=== PATIENT | female | born 1990 | race Caucasian/White ===

== ENCOUNTER → 2016-10-19 | Outpatient (CLI) | payer OTHER ==
[2016-10-19 14:13] LABS: CHLORIDE,CL 105 mmol/L (98-110); SODIUM,NA 138 mmol/L (136-146)
== END ==
LOC: MW.CHOBGYN 13:21
PROVIDERS: ATTEND Nurse Practitioner Women's Health
DX: K90.49 Malabsorption due to intolerance, not elsewhere classified (principal); R10.811 Right upper quadrant abdominal tenderness
CPT/HCPCS: 36415; 80053; 81025; 85025; 86677

== ENCOUNTER 2016-10-24 13:23 | Emergency (ER) | payer OTHER ==
[2016-10-24 13:43] VITALS: BP 117/63
--- NOTE | 2016-10-24 15:08 | EDM.PDOC ---
ED HPI GI/ABDOMINAL - General Chief Complaint: Abdominal Pain Stated Complaint: RT SIDE HURTS Time Seen by Provider: 10/24/16 13:24 Source of Information: Reports: Patient History Limitations: Reports: No limitations - History of Present Illness INITIAL COMMENTS - FREE TEXT/NARRATIVE: History of present illness: [] Patient is currently being worked up by her primary care physician for right upper quadrant pain possible gallbladder disease. She has an ultrasound scheduled in 2 days but not feel that she can wait and wants it done now. She also has epigastric pain and feels that she can't take a deep breath. Review of systems: As per history of present illness and below otherwise all systems reviewed and negative. Past medical history: As per history of present illness and as reviewed below otherwise noncontributory. Surgical history: As per history of present illness and as reviewed below otherwise noncontributory. Social history: No reported history of drug or alcohol abuse. Family history: As per history of present illness and as reviewed below otherwise noncontributory. Physical exam: General: Well developed, well nourished in NAD HEENT: Atraumatic, normocephalic, pupils reactive, negative for conjunctival pallor or scleral icterus, mucous membranes moist, throat clear, neck supple, nontender, trachea midline. Lungs: Clear to auscultation, breath sounds equal bilaterally, chest nontender. No wheezing rhonchi or rales Heart: S1S2, regular, negative for clicks, rubs, or JVD. Abdomen: Soft, nondistended, tender right upper quadrant epigastrium without rebound or guarding. Negative for masses or hepatosplenomegaly. Negative for costovertebral tenderness. Pelvis: Stable nontender. Genitourinary: Deferred. Rectal: Deferred. Extremities: Atraumatic, negative for cords or calf pain. Neurovascular unremarkable. Neuro: Awake, alert, oriented. Cranial nerves II through XII unremarkable. Cerebellum unremarkable. Motor and sensory unremarkable throughout. Exam nonfocal. Diagnostics: [] Abdominal ultrasound negative for gallstones positive for one of bladder polyp otherwise all normal Therapeutics: [] Impression: [] gAllbladder polyp abdominal pain unspecified Plan: [] Followup PMD for further workup Definitive disposition and diagnosis as appropriate pending reevaluation and review of above. - Related Data Allergies/ADRs: Allergies Allergy/AdvReac Type Severity Reaction Status Date / Time No Known Allergies Allergy Verified 10/24/16 13:38 Home Meds: Home Meds Norgestimate-Ethinyl Estradiol [Sprintec 28 Day Tablet] 10/24/16 [History] Omeprazole 10/24/16 [History] Ondansetron [Zofran ODT] 1 tab PO PRN 10/24/16 [History] Past Medical History HEENT History: Reports: Impaired vision Cardiovascular History: Reports: Heart murmur Respiratory History: Reports: Asthma Gastrointestinal History: Reports: None Genitourinary History: Reports: None [employer] History: Reports: None Musculoskeletal History: Reports: None Neurological History: Reports: Migraines Psychiatric History: Reports: None Endocrine/Metabolic History: Reports: None Hematologic History: Reports: None Immunologic History: Reports: None Oncologic (Cancer) History: Reports: None Dermatologic History: Reports: None - Infectious Disease History Infectious Disease History: Reports: None - Past Surgical History Head Surgeries/Procedures: Reports: None Social & Family History - Family History Family Medical History: Noncontributory - Tobacco Use Smoking Status *Q: Never Smoker - Caffeine Use Caffeine Use: Reports: None - Recreational Drug Use Recreational Drug Use: No ED ROS GENERAL - Review of Systems Review Of Systems: See Below (See history of present illness) ED EXAM, GI/ABD - Physical Exam Exam: See Below (See history of present illness) Course - Vital Signs Last Recorded V/S: Last Vital Signs Temp 36.4 C 10/24/16 13:39 Pulse 84 10/24/16 13:39 Resp 16 10/24/16 13:39 BP 117/63 10/24/16 13:39 Pulse Ox 99 10/24/16 13:39 - Orders/Labs/Meds Orders: Active Orders 24 hr Category Date Time Status Abdomen Ltd [US] Stat Exams 10/24/16 13:49 Taken Departure - Departure Time of Disposition: 15:07 Disposition: Home, Self-Care 01 Condition: good Clinical Impression: Abdominal pain Qualifiers: Abdominal location: right upper quadrant Qualified Code(s): R10.11 - Right upper quadrant pain Referrals: Kassandra Kingston, [employer] [Primary Care Provider] - Forms: ED Department Discharge Additional Instructions: The following information is given to patients seen in the emergency department who are being discharged to home. This information is to outline your options for follow-up care. We provide all patients seen in our emergency department with a follow-up referral. The need for follow-up, as well as the timing and circumstances, are variable depending upon the specifics of your emergency department visit. If you don't have a primary care physician on staff, we will provide you with a referral. We always advise you to contact your personal physician following an emergency department visit to inform them of the circumstance of the visit and for follow-up with them and/or the need for any referrals to a consulting specialist. The emergency department will also refer you to a specialist when appropriate. This referral assures that you have the opportunity for follow-up care with a specialist. All of these measure are taken in an effort to provide you with optimal care, which includes your follow-up. Under all circumstances we always encourage you to contact your private physician who remains a resource for coordinating your care. When calling for follow-up care, please make the office aware that this follow-up is from your recent emergency room visit. If for any reason you are refused follow-up, please contact the [facility] Emergency Department at and asked to speak to the emergency department charge nurse. [facility] Primary Care [address] [place] [address] - My Orders Last 24 Hours: My Active Orders 10/24/16 13:49 Abdomen Ltd [US] Stat - Assessment/Plan Last 24 Hours: My Active Orders 10/24/16 13:49 Abdomen Ltd [US] Stat
--- NOTE | 2016-10-24 16:34 | US ---
EXAM DATE: 10/24/16 PATIENT'S AGE: 26 Patient: PINA SOLORIO Facility: [place], [place] Site . Site : 1990 Study: US Abdomen [id number]/[id number] 2:49:04 PM Ordering Physician: Wilder Holcomb Final Report: INDICATION: Right upper quadrant abdomen pain TECHNIQUE: Ultrasound abdomen limited. Sonographic images of the right upper quadrant were obtained using lópez-scale and color Doppler images. COMPARISON: None FINDINGS: Liver: Normal in size and echotexture. No masses. No intrahepatic biliary dilatation. Gallbladder: No stones or sludge. Small gallbladder polyp is present. Normal wall thickness. No pericholecystic fluid. Common bile duct: 3 mm. Pancreas: Normal. Right kidney: 10 cm. Normal echotexture and cortex. No masses, stones, or hydronephrosis. Vasculature: Proximal abdominal aorta and IVC are normal. IMPRESSION: Small gallbladder polyp. Otherwise unremarkable right upper quadrant ultrasound. Dictated by Abdoulaye Ching MD @ 10/24/2016 3:00:08 PM Dictated by: Abdoulaye Ching MD @ 10/24/2016 15:00:12 (Electronic Signature) Report Signed by Proxy and Original Signed Document filed in the Medical Record. [facility]
== END 2016-10-24 15:15 | disposition home or self-care (01) ==
LOC: MW.ED 13:23
DX: R10.11 Right upper quadrant pain (principal)
CPT/HCPCS: 76705; 76705-26; 99282; 99283-25

== ENCOUNTER → 2016-10-26 | Outpatient (CLI) | payer OTHER ==
--- NOTE | 2016-10-29 14:59 | NM ---
EXAM DATE: 10/26/16 PATIENT'S AGE: 26 Patient: PINA SOLORIO Facility: [place], [place] Site Site : 1990 Study: NM Gallbladder [id number]/2017 2:32:36 PM Ordering Physician: TRISTON MURGUIA Final Report: HISTORY: 26-year-old female. Malabsorption. Right upper quadrant abdominal pain. Technique: 3.6 millicuries of [id number] was injected intravenously. Images of the liver, gallbladder and abdomen were obtained in the anterior projection for 50 minutes. 1.3 mcg CCK was then administered intravenously and imaging was continued for an additional 30 minutes. Findings: There is good uptake of activity by the hepatocytes. There is visualization of the biliary tree, gallbladder and small bowel. In response to CCK administration, there is an abnormally low gallbladder ejection fraction of 25 percent by 30 minutes. Impression: Abnormally low gallbladder ejection fraction of 25 percent. This is consistent with chronic cholecystitis/biliary dyskinesis/acalculous cholecystitis. Dictated by Junaid Bowser MD @ Oct 26 2016 3:33PM (Electronic Signature) Report Signed by Proxy and Original Signed Document filed in the Medical Record. [facility]
== END | disposition home or self-care (01) ==
LOC: MW.NM 12:43
PROVIDERS: ATTEND Nurse Practitioner Women's Health
DX: K90.49 Malabsorption due to intolerance, not elsewhere classified (principal); R10.811 Right upper quadrant abdominal tenderness
CPT/HCPCS: 78227; A9500; J2805

== ENCOUNTER 2016-11-21 06:45 | Day surgery (SDC) | payer OTHER ==
[~2016-11-21 06:45] MED LIST: Lactated Ringers 1,000 ML IV SCH; Sodium Chloride 0.9% 10 ML Syringe FLUSH PRN; Sodium Chloride 0.9% 2.5 ML Syringe FLUSH PRN; ceFAZolin 1 GM in Premix Bag 1 BAG IV ONE
[2016-11-21] MEDS ORDERED: Bupivacaine 0.5% 10 ML SDV ONE (07:21)
[2016-11-21] MEDS ORDERED: ceFAZolin 1 GM Vial ONE (07:25)
[2016-11-21] MEDS ORDERED: Ondansetron 4 MG/2 ML SDV ONE (07:25)
[2016-11-21] MEDS ORDERED: Rocuronium 10 MG/ML 10 ML Syringe ONE (07:25)
[2016-11-21] MEDS ORDERED: Neostigmine Methylsulfate 1 MG/ML 5 ML Syringe ONE (07:25)
[2016-11-21] MEDS ORDERED: Ketorolac 30 MG/ML SDV ONE (07:25)
[2016-11-21] MEDS ORDERED: Lidocaine 2% 5 ML SDV ONE (07:25)
[2016-11-21] MEDS ORDERED: Dexamethasone 4 MG/ML 5 ML MDV ONE (07:25)
[2016-11-21] MEDS ORDERED: Propofol 200 MG/20 ML SDV ONE (07:26)
[2016-11-21] MEDS ORDERED: HYDROmorphone 2 MG/ML Syringe ONE (07:26)
[2016-11-21] MEDS ORDERED: fentaNYL 250 MCG/5 ML SDV ONE (07:26)
[2016-11-21] MEDS ORDERED: Midazolam 1 MG/ML 2 ML SDV ONE (07:26)
[2016-11-21] MEDS ORDERED: Sodium Chloride 0.9% 20 ML ONE (07:27)
--- NOTE | 2016-11-21 07:30 | PCM.PREANE ---
Preanesthetic Assessment - Anesthesia/Transfusion/Family Hx Anesthesia History: No Prior Anesthesia Family History of Anesthesia Reaction: No Transfusion History: No Prior Transfusion(s) - Review of Systems General: No Symptoms Pulmonary: No Symptoms Cardiovascular: No Symptoms Gastrointestinal: No symptoms Neurological: No Symptoms Other: Reports: None - Physical Assessment O2 Sat by Pulse Oximetry: 100 Respiratory Rate: 16 Vital Signs: Last Vital Signs Temp 36.6 C 11/21/16 07:06 Pulse 65 11/21/16 07:06 Resp 16 11/21/16 07:06 BP 112/70 11/21/16 07:06 Pulse Ox 100 11/21/16 07:06 Height: 1.8 m Weight: 69.4 kg ASA Class: 2 Mental Status: Alert & Oriented x3 Airway Class: Mallampati = 1 Dentition: Reports: Normal Dentition ROM/Head Extension: Full Lungs: Clear to auscultation, Normal respiratory effort Cardiovascular: Regular Rate, Regular Rhythm - Lab Values: Laboratory Last Values Urine HCG, Qual NEGATIVE (NEGATIVE) 11/21/16 07:00 - Allergies Allergies/Adverse Reactions: Allergies Allergy/AdvReac Type Severity Reaction Status Date / Time No Known Allergies Allergy Verified 10/24/16 13:38 - Acknowledgements Anesthesia Type Planned: General Anesthesia Pt an Appropriate Candidate for the Planned Anesthesia: Yes Alternatives and Risks of Anesthesia Discussed w Pt/Guardian: Yes Pt/Guardian Understands and Agrees with Anesthesia Plan: Yes PreAnesthesia Questionnaire HEENT History: Reports: Impaired vision, Other (see below) Other HEENT History: wears glasses/contacts Cardiovascular History: Reports: Heart murmur Respiratory History: Reports: Asthma Other Respiratory History: hx sports induced asthma as a teenager Gastrointestinal History: Reports: None Genitourinary History: Reports: None [employer] History: Reports: None Musculoskeletal History: Reports: None Neurological History: Reports: Migraines Psychiatric History: Reports: None Endocrine/Metabolic History: Reports: None Hematologic History: Reports: None Immunologic History: Reports: None Oncologic (Cancer) History: Reports: None Dermatologic History: Reports: None - Infectious Disease History Infectious Disease History: Reports: None - Past Surgical History Head Surgeries/Procedures: Reports: None HEENT Surgical History: Reports: Oral surgery Other HEENT Surgeries/Procedures: hx wisdom teeth extraction - SUBSTANCE USE Smoking Status *Q: Never Smoker Recreational Drug Use History: No - HOME MEDS Home Medications: Home Meds Norgestimate-Ethinyl Estradiol [Sprintec 28 Day Tablet] 1 tab PO ASDIRECTED 04/04 [History] Ondansetron [Zofran ODT] 1 tab SL ASDIRECTED PRN 10/24/16 [History] - CURRENT (IN HOUSE) MEDS Current Meds: Current Medications Lactated Ringer's (Ringers, Lactated) 1,000 mls @ 125 mls/hr IV ASDIRECTED JOSTIN Last Admin: 11/21/16 07:11 Dose: 125 mls/hr Sodium Chloride (Saline Flush) 10 ml FLUSH ASDIRECTED PRN PRN Reason: Keep Vein Open Sodium Chloride (Saline Flush) 2.5 ml FLUSH ASDIRECTED PRN PRN Reason: Keep Vein Open Discontinued Medications Bupivacaine HCl (Sensorcaine-Mpf 0.5%) Confirm Administered Dose 30 ml .ROUTE .STK-MED ONE Stop: 11/21/16 07:22 Cefazolin Sodium (Ancef) Confirm Administered Dose 1 gm .ROUTE .STK-MED ONE Stop: 11/21/16 07:26 Dexamethasone (Dexamethasone) Confirm Administered Dose 20 mg .ROUTE .STK-MED ONE Stop: 11/21/16 07:26 Fentanyl (Sublimaze) Confirm Administered Dose 250 mcg .ROUTE .STK-MED ONE Stop: 11/21/16 07:27 Glycopyrrolate () Confirm Administered Dose 1 mg .ROUTE .STK-MED ONE Stop: 11/21/16 07:26 Hydromorphone HCl (Dilaudid) Confirm Administered Dose 2 mg .ROUTE .STK-MED ONE Stop: 11/21/16 07:27 Cefazolin Sodium/Dextrose 1 gm (/ Premix) 50 mls @ 100 mls/hr IV ONETIME ONE Stop: 11/20/16 09:19 Ketorolac Tromethamine (Toradol) Confirm Administered Dose 30 mg .ROUTE .STK- MED ONE Stop: 11/21/16 07:26 Lidocaine (Xylocaine-Mpf 2%) Confirm Administered Dose 5 ml .ROUTE .STK-MED ONE Stop: 11/21/16 07:26 Midazolam HCl (Versed 1 Mg/Ml) Confirm Administered Dose 2 mg .ROUTE .STK-MED ONE Stop: 11/21/16 07:27 Neostigmine Methylsulfate (Neostigmine) Confirm Administered Dose 5 mg .ROUTE .STK-MED ONE Stop: 11/21/16 07:26 Ondansetron HCl (Zofran) Confirm Administered Dose 4 mg .ROUTE .STK-MED ONE Stop: 11/21/16 07:26 Propofol (Diprivan 20 Ml) Confirm Administered Dose 200 mg .ROUTE .STK-MED ONE Stop: 11/21/16 07:27 Rocuronium [place] (Zemuron) Confirm Administered Dose 100 mg .ROUTE .STK-MED ONE Stop: 11/21/16 07:26 Preanesthetic Assessment - ANESTHESIA/TRANSFUSION/FAMILY HX Family History of Anesthesia Reaction: No - PHYSICAL ASSESSMENT O2 Sat by Pulse Oximetry: 100 RR: 16 Vital Signs: Last Vital Signs Temp 36.6 C 11/21/16 07:06 Pulse 65 11/21/16 07:06 Resp 16 11/21/16 07:06 BP 112/70 11/21/16 07:06 Pulse Ox 100 11/21/16 07:06 Height: 1.8 m Weight: 69.4 kg - LAB Values: Laboratory Last Values Urine HCG, Qual NEGATIVE (NEGATIVE) 11/21/16 07:00 - ALLERGIES Allergies/Adverse Reactions: Allergies Allergy/AdvReac Type Severity Reaction Status Date / Time No Known Allergies Allergy Verified 10/24/16 13:38
[2016-11-21] MEDS ORDERED: fentaNYL 100 MCG/2 ML SDV IVPUSH PRN (08:23)
--- NOTE | 2016-11-21 09:40 | PCM.OPNOTE ---
- General Post-Op/Procedure Note Date of Surgery/Procedure: 11/21/16 Operative Procedure(s): Laparoscopic cholecystectomy Findings: Enlarged gallbladder with peritoneal adhesions Pre Op Diagnosis: Biliary colic Post-Op Diagnosis: same Anesthesia Technique: General ET tube Primary Surgeon: Irene Lebron Pathology: Gallbladder Fluid Replacement, Intraop: 1,600 Output, Urine Amount: 35 EBL in mLs: 5 Condition: Good
[2016-11-21] MEDS ORDERED: Acetaminophen/oxyCODONE 325-5 MG Tab PO PRN (09:41)
[2016-11-21 10:55] VITALS: BP 104/58
--- NOTE | 2016-11-21 11:24 | PCM48HPAN ---
Post Anesthesia Note - EVALUATION WITHIN 48HRS OF ANESTHETIC Vital Signs in Normal Range: Yes Patient Participated in Evaluation: Yes Respiratory Function Stable: Yes Airway Patent: Yes Cardiovascular Function Stable: Yes Hydration Status Stable: Yes Pain Control Satisfactory: Yes Nausea and Vomiting Control Satisfactory: Yes Mental Status Recovered: Yes
--- NOTE | 2016-11-21 11:24 | PCM.POSTAN ---
POST ANESTHESIA ASSESSMENT - MENTAL STATUS Mental Status: alert, oriented - RESPIRATORY Respiratory Status: respiratory rate WNL, airway patent - CARDIOVASCULAR CV Status: pulse rate WNL, blood pressure stable - GASTROINTESTINAL GI Status: no symptoms - POST OP HYDRATION Hydration Status: adequate & stable
--- NOTE | 2016-11-21 15:41 | OR ---
SURGEON: MICHELLE ADAMS MD DATE OF PROCEDURE: 11/21/2016 PREOPERATIVE DIAGNOSIS: Biliary colic. POSTOPERATIVE DIAGNOSIS: Biliary colic. PROCEDURE PERFORMED: Laparoscopic cholecystectomy. ANESTHESIA: General endotracheal anesthesia. FLUIDS: 1600 mL crystalloid. ESTIMATED BLOOD LOSS: 5 mL. URINE OUTPUT: 35 mL. FINDINGS: Enlarged gallbladder with filmy adhesions to the omentum and surrounding liver. COMPLICATIONS: None. INDICATIONS: The patient is a 26-year-old female, who has progressively worsening postprandial nausea and right upper quadrant pain for the past 6 months. A recent HIDA scan showed a decreased ejection fraction. I explained to the patient that she has biliary colic and that the treatment for this is removal of the gallbladder. We discussed the laparoscopic and open cholecystectomy procedures. I discussed the need for an open procedure should I be unable to perform the laparoscopic procedure safely. We discussed the expected perioperative course as well as the risks of the procedure including bleeding, infection, and damage to surrounding structures. The patient verbalized understanding and wishes to proceed. PROCEDURE IN DETAIL: The patient was brought to the operating room and placed on the operating room table in supine position. A time-out was completed verifying the patient's name, age, date of , allergies, and procedure to be performed. General endotracheal anesthetic was induced. The left arm was tucked to the patient's side and a Kim catheter was placed. The abdomen was prepped and draped in usual sterile fashion. A 0.5% Marcaine was used to anesthetize the infraumbilical fold. An #11 blade was used to make an incision through the skin along this area. Cautery was used to create hemostasis and get down to the subcutaneous fat. S retractors were used to bluntly dissect down to the level of the fascia. The fascia was grasped with Sweetie's and elevated. It was then sharply incised and entered using Metzenbaum scissors. The underlying peritoneum was grasped with a hemostat, elevated and sharply incised using Metzenbaum scissors. A 12 mm atraumatic port was placed inside the abdomen and the abdomen allowed to insufflate to a pressure of 13 mmHg. A 5 mm 30 degree scope was then inserted into the abdomen. The area underneath my initial trocar site was inspected and no damage was noted to surrounding structures. Subsequently, the following ports were inserted under direct visualization. A 5 mm epigastric port and two 5 mm ports along the right costal margin. The patient was then placed in reverse Trendelenburg position with right side up. Omental attachments to the gallbladder were gently swept away until the atraumatic grasper could be placed, could be used to retract the fundus of the gallbladder superiorly over the dome of the liver. From the adhesions between the gallbladder and omentum as well as duodenum were taken down bluntly and with cautery. The infundibulum was identified and subsequently retracted laterally towards the right lower quadrant using another grasper. This maneuver exposed Calot's triangle. The peritoneum overlying the gallbladder infundibulum was bluntly dissected using a Judy grasper and sharply divided with hook cautery. The posterior peritoneum was dissected in a similar fashion. The triangle was dissected to expose the cystic artery and cystic duct and the cystic plate. Once these structures were carefully identified, the cystic artery and cystic ducts were doubly clipped and ligated. Electrocautery was then used to separate the peritoneal attachments between the gallbladder and the bed of the liver. The gallbladder fossa and cystic artery were inspected to ensure no bleeding. Hemostasis was achieved with electrocautery. During dissection of the gallbladder, the clip on the cystic duct stump on the gallbladder itself fell off and bile was spilled in the abdomen. The gallbladder, once freed, was removed from the abdomen through the 12 mm port site using an EndoCatch bag. The 12 mm port was then reinserted and the abdomen was irrigated with approximately 2 L of saline until it ran clear. I once again inspected the gallbladder fossa and the clips on the cystic duct stump and artery, and noted there to be no bleeding and that the clips were intact. All the 5 mm trocars were then removed under direct visualization and the 12 mm port was removed from the infraumbilical incision and the abdomen allowed to desufflate. The fascia at the infraumbilical port site was closed with a [id number] 0 Vicryl suture. The subcutaneous tissue was closed with interrupted 3-0 Vicryl. The skin of the infraumbilical site was closed with a running 4-0 Monocryl suture. The 5-mm port sites were closed with interrupted 4-0 Monocryl. Steri-Strips and sterile dressings were applied. Counts were correct and complete at the end of the case. The patient was taken to PACU in stable condition. LEMLADONNAH / SAI /[id number] BROCK
== END 2016-11-21 11:45 | disposition home or self-care (01) ==
LOC: MW.SDS 06:45
PROVIDERS: ATTEND Surgery
PROC: 0FT44ZZ Resection of Gallbladder, Percutaneous Endoscopic Approach (ICD-10-PCS; principal; 2016-11-21)
DX: K81.1 Chronic cholecystitis (principal); K66.0 Peritoneal adhesions (postprocedural) (postinfection); J45.909 Unspecified asthma, uncomplicated; F41.9 Anxiety disorder, unspecified; Z79.899 Other long term (current) drug therapy; Z98.890 Other specified postprocedural states
CPT/HCPCS: 47562; 81025; 88304; A9270; J0690; J1100; J1170; J1885; J2250; J2405; J3010; J7120; 00790; J2704

== ENCOUNTER → 2016-12-04 | Outpatient (CLI) | payer OTHER ==
[2016-12-04 11:11] LABS: CHLORIDE,CL 105 mmol/L (98-110); SODIUM,NA 138 mmol/L (136-146)
== END ==
LOC: MW.CHGS 10:28
PROVIDERS: ATTEND Surgery
DX: R11.0 Nausea (principal); Z98.890 Other specified postprocedural states
CPT/HCPCS: 36415; 80053; 85027

== ENCOUNTER → 2016-12-07 | Outpatient (CLI) | payer OTHER ==
[~2016-12-07] MED LIST changes: +Iopamidol 755 MG/ML 500 ML Multipack Bottle IVPUSH STA; -Lactated Ringers 1,000 ML IV SCH; -Sodium Chloride 0.9% 10 ML Syringe FLUSH PRN; -Sodium Chloride 0.9% 2.5 ML Syringe FLUSH PRN; -ceFAZolin 1 GM in Premix Bag 1 BAG IV ONE
--- NOTE | 2016-12-07 13:20 | CT ---
CT of the abdomen and pelvis with contrast. HISTORY: Nausea TECHNIQUE: Axial CT images were obtained of the abdomen and pelvis following administration of 84 mL of Isovue-370 left hand without complication. Coronal and sagittal reconstructions obtained. FINDINGS: The lungs are clear without focal consolidation. No pleural effusion or pneumothorax. The liver demonstrates several very tiny hypodensities, likely representing cysts. The spleen, adren al glands, and pancreas appear normal. Cholecystectomy clips are noted. No bulky retroperitoneal lym phadenopathy or abdominal ascites. The kidneys enhance and function symmetrically without evidence of obstructive uropathy. The large and small bowel are normal in caliber without evidence of obstruction. The appendix appear s normal. No focal pericolonic inflammation or stranding. There is a trace free pelvic fluid, likely physiologic. No bulky pelvic lymphadenopathy. No suspicious osseous abnormalities identified. IMPRESSION: No acute findings demonstrated within the abdomen or pelvis.
== END ==
LOC: MW.DI 09:18
PROVIDERS: ATTEND Surgery
DX: R11.0 Nausea (principal); Z98.890 Other specified postprocedural states
CPT/HCPCS: 74177; Q9967

== ENCOUNTER 2018-09-16 10:08 | Day surgery (SDC) | payer BC ==
[~2018-09-16 10:08] MED LIST changes: -Iopamidol 755 MG/ML 500 ML Multipack Bottle IVPUSH STA; +Lactated Ringers 1,000 ML IV SCH; +Sodium Chloride 0.9% 10 ML Syringe FLUSH PRN; +Sodium Chloride 0.9% 2.5 ML Syringe FLUSH PRN
--- NOTE | 2018-09-16 10:45 | PCM.PREANE ---
Preanesthetic Assessment - Anesthesia/Transfusion/Family Hx Anesthesia History: Prior Anesthesia Without Reaction Family History of Anesthesia Reaction: No Transfusion History: No Prior Transfusion(s) Intubation History: Unknown - Review of Systems General: No Symptoms Pulmonary: No Symptoms Cardiovascular: No Symptoms Gastrointestinal: Abdominal Pain, Nausea Neurological: No Symptoms Other: Reports: None - Physical Assessment Height: 1.8 m Weight: 68.492 kg ASA Class: 2 Mental Status: Alert & Oriented x3 Airway Class: Mallampati = 2 Dentition: Reports: Normal Dentition Thyro-Mental Finger Breadths: 3 Mouth Opening Finger Breadths: 3 ROM/Head Extension: Full Lungs: Clear to Auscultation, Normal Respiratory Effort Cardiovascular: Regular Rate, Regular Rhythm - Lab Values: Laboratory Last Values Urine HCG, Qual NEGATIVE (NEGATIVE) 09/16/18 10:24 - Allergies Allergies/Adverse Reactions: Allergies Allergy/AdvReac Type Severity Reaction Status Date / Time No Known Allergies Allergy Verified 09/11/18 13:37 - Blood Blood Available: No - Anesthesia Plan Pre-Op Medication Ordered: None - Acknowledgements Anesthesia Type Planned: MAC Pt an Appropriate Candidate for the Planned Anesthesia: Yes Alternatives and Risks of Anesthesia Discussed w Pt/Guardian: Yes Pt/Guardian Understands and Agrees with Anesthesia Plan: Yes PreAnesthesia Questionnaire HEENT History: Reports: Other (See Below) Other HEENT History: wears glasses/contacts Cardiovascular History: Reports: Heart Murmur Other Cardiovascular History: causes no symptoms Respiratory History: Reports: Asthma Other Respiratory History: hx of sports induced asthma- no attack for 10 years, does not use inhaler Gastrointestinal History: Reports: None Genitourinary History: Reports: None [employer]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 Musculoskeletal History: Reports: Fracture Other Musculoskeletal History: hx of fx toe Neurological History: Reports: Migraines (very rare) Psychiatric History: Reports: Anxiety, Depression Endocrine/Metabolic History: Reports: None Hematologic History: Reports: None Immunologic History: Reports: None Oncologic (Cancer) History: Reports: None Dermatologic History: Reports: Eczema - Infectious Disease History Infectious Disease History: Reports: None - Past Surgical History HEENT Surgical History: Reports: Oral Surgery Other HEENT Surgeries/Procedures: wisdom teeth GI Surgical History: Reports: Cholecystectomy - SUBSTANCE USE Recreational Drug Use History: No - HOME MEDS Home Medications: Home Meds Norgestimate-Ethinyl Estradiol [Sprintec 28 Day Tablet] 1 tab PO ASDIRECTED 04/04 [History] Metoclopramide HCl 10 mg PO Q6H PRN 09/11/18 [History] buPROPion HCl [Wellbutrin Xl] 150 mg PO DAILY 09/11/18 [History] - CURRENT (IN HOUSE) MEDS Current Meds: Current Medications Lactated Ringer's (Ringers, Lactated) 1,000 mls @ 125 mls/hr IV ASDIRECTED JOSTIN Sodium Chloride (Saline Flush) 10 ml FLUSH ASDIRECTED PRN PRN Reason: Keep Vein Open Sodium Chloride (Saline Flush) 2.5 ml FLUSH ASDIRECTED PRN PRN Reason: Keep Vein Open Sodium Chloride (Saline Flush) 10 ml FLUSH ASDIRECTED PRN PRN Reason: Keep Vein Open Sodium Chloride (Saline Flush) 2.5 ml FLUSH ASDIRECTED PRN PRN Reason: Keep Vein Open
[2018-09-16] MEDS ORDERED: Midazolam 1 MG/ML 2 ML SDV ONE (11:09)
[2018-09-16] MEDS ORDERED: Propofol 200 MG/20 ML SDV ONE (11:11)
[2018-09-16] MEDS ORDERED: Lidocaine 2% 5 ML SDV ONE (11:12)
--- NOTE | 2018-09-16 11:31 | PCM.OPNOTE ---
- General Post-Op/Procedure Note Date of Surgery/Procedure: 09/16/18 Operative Procedure(s): Diagnostic EGD Findings: Stomach had a large amount of green fluid in stomach. Once this was suctioned away the antrum appeared inflamed. Pre Op Diagnosis: Chronic nausea Post-Op Diagnosis: Gastritis Anesthesia Technique: MAC Primary Surgeon: Irene Lebron Condition: Good
--- NOTE | 2018-09-16 11:50 | PCM.POSTAN ---
POST ANESTHESIA ASSESSMENT - MENTAL STATUS Mental Status: Alert, Oriented - VITAL SIGNS Pulse Rate: 97 SaO2: 99 Resp Rate: 16 Blood Pressure: 116/69 - RESPIRATORY Respiratory Status: Respiratory Rate WNL, Airway Patent, O2 Saturation Stable - CARDIOVASCULAR CV Status: Pulse Rate WNL, Blood Pressure Stable - GASTROINTESTINAL GI Status: No Symptoms - PAIN Pain Score: 0 (no pain, no nausea) - POST OP HYDRATION Hydration Status: Adequate & Stable - OBSERVATIONS Free Text/Narrative:: awake, alert, talkative, vitals stable. Good postop phase I recovery.
[2018-09-16 12:09] VITALS: BP 116/69
--- NOTE | 2018-09-16 12:09 | PCM48HPAN ---
Post Anesthesia Note - EVALUATION WITHIN 48HRS OF ANESTHETIC Vital Signs in Normal Range: Yes Patient Participated in Evaluation: Yes Respiratory Function Stable: Yes Airway Patent: Yes Cardiovascular Function Stable: Yes Hydration Status Stable: Yes Pain Control Satisfactory: Yes Nausea and Vomiting Control Satisfactory: Yes Mental Status Recovered: Yes Pulse Rate: 97 Resp Rate: 16 Blood Pressure: 116/69 - COMMENTS/OBSERVATIONS Free Text/Narrative:: no anesthesia problems
--- NOTE | 2018-09-16 12:28 | OR ---
SURGEON: MICHELLE ADAMS MD DATE OF PROCEDURE: 09/16/2018 PREOPERATIVE DIAGNOSIS: Chronic nausea. POSTOPERATIVE DIAGNOSIS: Gastritis. PROCEDURE PERFORMED: Diagnostic esophagogastroduodenoscopy with biopsies. ANESTHESIA: MAC. INSTRUMENT USED: Olympus endoscope. EXTENT OF EXAM: To the second portion of duodenum. PREPARATION: Good. LIMITATIONS: None. INDICATIONS: The patient is a 28-year-old female who presents with chronic nausea. She was diagnosed with biliary dyskinesia last year and had her gallbladder removed. This has not improved her symptoms. She was seen by hearing aid specialist who recommended a diagnostic EGD. She came back to me to have this procedure performed. I explained the procedure, expected perioperative course, and risks including bleeding, infection, and/or damage to surrounding structures including perforation. The patient verbalized understanding and wishes to proceed. PROCEDURE IN DETAIL: The patient was brought into the endoscopy suite and placed in a beach chair position. A time-out was completed verifying the patient's name, age, date of , allergies, and procedure to be performed. A bite block was placed in the patient's mouth. Monitored anesthesia care was induced and continuous oxygen was provided via nasal cannula throughout the procedure. After adequate sedation was achieved, a well lubricated endoscope was placed in the patient's mouth and advanced under direct visualization to the second portion of the duodenum. When I reached the stomach, a large amount of mucousy green fluid was encountered. This had to be suctioned out before I could advance my scope safely to the second portion of the duodenum. The second portion of duodenum did appear normal and a photograph was taken. The scope was then fully withdrawn while examining the color, texture, anatomy, and integrity mucosa of the upper GI tract. The first portion of duodenum appeared normal as well and a picture of this was taken. A biopsy was taken in the duodenal bulb and sent to pathology, labeled as duodenum. The scope was then brought into the stomach. The pylorus and antrum of the stomach appeared to be mucus covered and slightly nodular in appearance. A photograph of this was taken. I then retroflexed the scope and looked back at the GE junction. This appeared slightly patulous, but there was no evidence of a gross hiatal hernia. A photograph of this was taken. Biopsies were taken of the gastric antrum, body, and fundus and sent to pathology for histologic review. While in the stomach, the patient appeared to have some reflux of intestinal contents into the stomach. The scope was then brought into the distal esophagus and a photograph was taken of the Z-line. This appeared normal. A biopsy was taken about 1 cm above the Z-line and sent to pathology, labeled as esophageal biopsy. Grossly, the esophageal mucosa appeared normal. I went back in the stomach, suctioned all the air that has used out and then removed the scope. The procedure was terminated and the patient tolerated it well. She was taken back to the PACU in stable condition. ENDOSCOPIC DIAGNOSIS: Gastritis. RECOMMENDATIONS: I will start the patient on pantoprazole. She may have bile reflux gastritis or gastritis due to some level of gastroparesis. We will visit with her in clinic in 2 weeks to discuss the biopsy results, and we will send all of our results and this notes to her hearing aid specialist. MICHAEL GIBBS /[id number]
== END 2018-09-16 12:05 | disposition home or self-care (01) ==
LOC: MW.SDS 10:08
PROVIDERS: ATTEND Surgery
DX: K29.50 Unspecified chronic gastritis without bleeding (principal); K20.9 Esophagitis, unspecified; J45.909 Unspecified asthma, uncomplicated; K59.00 Constipation, unspecified; F41.9 Anxiety disorder, unspecified; F32.9 Major depressive disorder, single episode, unspecified
CPT/HCPCS: 43239; 81025; J2001; J2250; J2704; J7120; 00731; 88305; 88312